=== PATIENT | male | born 1980 | race Caucasian/White ===

== ENCOUNTER 2016-03-30 08:44 | Emergency (ER) | payer OTHER ==
[~2016-03-30] VITALS: Ht 175.3 cm; Wt 68.1 kg
[~2016-03-30 08:44] MED LIST: LOMO PO; PERC5TAB12 PO; PROT40TA PO; ZOFR4TAB3 SL
[2016-03-30 08:56] VITALS: BP 138/100; PULSE 84; RESP 16; TEMP 98.1; O2SAT 100
[2016-03-30] MEDS ORDERED: OXYC20TA17 PO (09:30)
--- NOTE | 2016-03-30 09:55 | PD ---
HPI Chief Complaint: Injury Time Seen by Provider: 09:51 Travel History International Travel<30 days: No Contact w/Intl Traveler<30days: No Traveled to known affect area: No History of Present Illness HPI This patient complains of right hand pain. Last night he punched a refrigerator. Severity is moderate. Duration one day. It is worse with movement PFSH Past Medical History Asthma: Yes Diminished Hearing: No Gastrointestinal Disorders: Yes (STATES ACID REFLUX) GERD: Yes Hiatal Hernia: Yes Musculoskeletal: Yes (L5 herniated ) Tetanus Vaccination: < 5 Years Influenza Vaccination: No Past Surgical History Surgical History: No Previous Surgery Social History Alcohol Use: Yes (Occ.) Tobacco Use: No Substance Use: No Allergies-Medications (Allergen,Severity, Reaction): Coded Allergies: Codeine (Verified Allergy, Severe, "couldn't breathe", 03/30/16) Reported Meds & Prescriptions Reported Meds & Active Scripts Active Reported Oxycontin (Oxycodone HCl) 20 Mg Tab 20 Mg PO DAILY Review of Systems General / Constitutional: No: Fever Eyes: No: Visual changes HENT: No: Headaches Cardiovascular: No: Chest Pain or Discomfort Respiratory: No: Shortness of Breath Gastrointestinal: No: Abdominal Pain Genitourinary: No: Dysuria Musculoskeletal: Positive: Pain Skin: No Rash Neurologic: No: Weakness Psychiatric: No: Depression Endocrine: No: Polydipsia Hematologic/Lymphatic: No: Easy Bruising Physical Exam Narrative SKIN: Inspection shows no rash or ulcers. Palpation shows no induration or nodules. Psych: Normal mood and affect. Normal insight and judgment. Right hand: Patient has some swelling and tenderness at the fifth metacarpal. No open wound. Neurovascularly intact Data Data Last Documented VS Vital Signs Date Time Temp Pulse Resp B/P Pulse Ox O2 Delivery O2 Flow Rate FiO2 03/30/16 08:56 98.1 84 16 138/100 100 Orders Hand, Complete ([id number]) (03/30/16 ) Splint Or Brace Apply/Monitor (03/30/16 10:20) [facility] Medical Decision Making Medical Screen Exam Complete: Yes Emergency Medical Condition: Yes Medical Record Reviewed: Yes Differential Diagnosis Hand fracture, hand contusion, dislocation Narrative Course I have reviewed the patient's electronic medical record. I reviewed his right hand x-rays which show a fracture at the fifth metacarpal, distal end I placed him in a right ulnar gutter splint and recommended hand surgeon follow- up He will ice and elevate Diagnosis Primary Impression: Closed boxer's fracture Qualified Code: S62.309A - Closed boxer's fracture, initial encounter Additional Instructions: Follow-up with hand surgeon Wear splint Ice and elevate right hand Med/Other Pt SpecificInfo: Other Disposition: 01 DISCHARGE HOME Condition: Stable Marek Paez MD Mar 30, 2016 09:55
--- NOTE | 2016-03-30 10:39 | RADHPO ---
EXAM DATE/TIME: 03/30/2016 09:57 [facility] COMPARISON: No previous studies available for comparison. INDICATIONS : Right hand pain after fall MEDICAL HISTORY : Previous right thumb injury SURGICAL HISTORY : None. ENCOUNTER: Initial ACUITY: 2 days PAIN SCORE: 6/10 LOCATION: Right lateral hand FINDINGS: AP, lateral and oblique views of the right hand were obtained and demonstrate a mildly comminuted sli ghtly impacted fracture of the fifth metacarpal head with mild volar angulation. There is overlying s oft tissue swelling. No other bony abnormalities are identified. CONCLUSION: Boxers type fracture of the fifth metacarpal. Abdelrahman Henderson MD on March 30, 2016 at 10:37 Board Certified Radiologist. This report was verified electronically. ? C of 1 RADIOLOGY CONSULTATION REPORT Ordering MD: PEPPER LANDRUM M.D. MR#: [id number] : 78 Copy To: JOEY VERGARA M.D. Loc: [facility] Age: 36 Bed: ABDELRAHMAN BREWER Milady March 30, 2016 9:57 XR HAND, RIGHT COMPLETE [facility] DEPARTMENT OF RADIOLOGY [address] * [address] [place] [address] * RADIOLOGY CONSULTATION REPORT Ordering MD: PEPPER LANDRUM M.D. MR#: [id number] : 76 Copy To: JOEY VERGARA M.D. Loc: [facility] Age: 36 Bed: BREWERABDELRAHMAN March 30, 2016 9:57 XR HAND, RIGHT COMPLETE
[2016-03-30 10:58] VITALS: BP 134/92
== END 2016-03-30 11:00 | disposition home or self-care (01) ==
LOC: PHED 08:44
DX: S62.396A Other fracture of fifth metacarpal bone, right hand, initial encounter for closed fracture (principal); Z87.09 Personal history of other diseases of the respiratory system; Z87.19 Personal history of other diseases of the digestive system; Z87.39 Personal history of other diseases of the musculoskeletal system and connective tissue; W22.09XA Striking against other stationary object, initial encounter
CPT/HCPCS: 29125; 73130